=== PATIENT | male | born 1950 | race African-American/Black ===

== ENCOUNTER 2017-07-31 12:30 | Inpatient (IN) | payer MEDICARE, MEDICAID ==
[~2017-07-31] VITALS: Ht 175.3 cm; Wt 62.6 kg
--- NOTE | 2017-07-31 12:30 | NUR ---
Home med list from the Adult day care was given by the social media content specialist.
[2017-07-31 13:11] LABS: BASOPHILS # (AUTO) 0.1 K/uL (0.0-8.0); BASOPHILS % (AUTO) 1.3 % (0.0-2.0); EOSINOPHILS # (AUTO) 0.3 K/uL (0.0-0.7); EOSINOPHILS % (AUTO) 5.8 % (0.0-7.0); HEMATOCRIT 38.3 % (36.7-47.1); HEMOGLOBIN 12.4 g/dL (12.5-16.3); LYMPHOCYTES # (AUTO) 0.7 K/uL (20.0-40.0); LYMPHOCYTES % (AUTO) 13.8 % (20.5-51.5); MEAN CORPUSCULAR HEMOGLOBIN 26.3 uug (23.8-33.4); MEAN CORPUSCULAR HGB CONC 32 g/dL (32.5-36.3); MEAN CORPUSCULAR VOLUME 81.2 fL (73.0-96.2); MONOCYTES # (AUTO) 0.5 K/uL (2.0-10.0); MONOCYTES % (AUTO) 9.3 % (0.0-11.0); NEUTROPHILS # (AUTO) 3.6 K/uL (1.8-8.9); NEUTROPHILS % (AUTO) 69.8 % (38.5-71.5); PLATELET COUNT (AUTO) 249 K/uL (152-348); RED BLOOD CELL COUNT(AUTO) 4.72 MIL/uL (4.06-5.63); WHITE BLOOD COUNT (AUTO) 5.2 K/uL (3.6-10.2)
[2017-07-31] MEDS ORDERED: PALI234D IM (13:12)
[2017-07-31] MEDS ORDERED: BENZ2TAB7 PO (13:12)
[2017-07-31] MEDS ORDERED: DIVA500T7 PO (13:12)
[2017-07-31] MEDS ORDERED: QUET200T30 PO ×2 (13:15→13:16)
[2017-07-31] MEDS ORDERED: QUET100T31 PO ×2 (13:15)
[2017-07-31 13:20] LABS: CARBON DIOXIDE 28 mmol/L (21-32); CHLORIDE 104 mmol/L (98-107); CREATININE 1.1 mg/dL (0.6-1.3); GLUCOSE 84 mg/dL (74-106); UREA NITROGEN, BLOOD 23 mg/dL (7-18)
[2017-07-31 13:25] LABS: ETHANOL < 3 MG/DL (0-0)
[2017-07-31 13:34] LABS: ALANINE AMINOTRANSFERASE 22 U/L (16-63); ALKALINE PHOSPHATASE 70 U/L (50-136); ASPARTATE AMINOTRANSFERASE 23 U/L (15-37); BILIRUBIN,DIRECT 0.1 mg/dL (0.0-0.2); BILIRUBIN,TOTAL 0.4 mg/dL (0.2-1.0); TOTAL PROTEIN, SERUM 7.5 g/dL (6.4-8.2)
[2017-07-31 13:35] LABS: ACETAMINOPHEN < 2.0 ug/mL (10-30)
[2017-07-31] MEDS ORDERED: OLANZAPINE 10 MG VIAL IM ONE ×2 (14:02→14:40)
[2017-07-31 14:33] LABS: *BILIRUBIN,URIN NEGATIVE (NEGATIVE); *BLOOD, URINE NEGATIVE (NEGATIVE); *CLARITY,URINE CLEAR (CLEAR); *COLOR,URINE YELLOW (YELLOW); *KETONES,URINE NEGATIVE (NEGATIVE); *PROTEIN,URINE TRACE (NEGATIVE); *UROBILINOGEN,URINE 0.2 E.U./dl (NORMAL); LEUKOCYTE ESTERASE ,URINE NEGATIVE (NEGATIVE); NITRITE, URINE NEGATIVE (NEGATIVE); UGLUCOSE NEGATIVE (NEGATIVE)
[2017-07-31 14:46] LABS: RBC,URINE 0-3 /HPF (0-3); SQUAMOUS EPITHELIAL CELL,UR FEW /HPF (NONE SEEN)
[2017-07-31 14:47] LABS: *AMPHETAMINE, URINE NEGATIVE (NEGATIVE); *BARBITURATE, URINE NEGATIVE (NEGATIVE); *CANNABINOID, URINE NEGATIVE (NEGATIVE); *COCCAINE, URINE POSITIVE (NEGATIVE); *OPIATE, URINE NEGATIVE (NEGATIVE); *PHENCYCLIDINE SCREEN,URINE NEGATIVE (NEGATIVE); MUCUS,URINE FEW /LPF (0-FEW)
--- NOTE | 2017-07-31 15:33 | NUR ---
SBAR report given to Jovana RN via telephone.
[2017-07-31] MEDS ORDERED: ACETAMINOPHEN 325 MG TABLET PO PRN (17:30)
[2017-07-31] MEDS ORDERED: MAG HYDROX/AL HYDROX/SIMETH 30 ML LIQUID UDC PO PRN (17:30)
[2017-07-31] MEDS ORDERED: MAGNESIUM HYDROXIDE 30 ML LIQUID UDC PO PRN (17:30)
[2017-07-31] MEDS ORDERED: ZOLPIDEM 5 MG TABLET PO PRN (17:30)
[2017-07-31] MEDS ORDERED: LORAZEPAM 0.5 MG TABLET PO PRN (17:30)
--- NOTE | 2017-07-31 18:52 | NUR ---
Admit to MHU a 67 yr. old male, placed on 5150 for DTO. Patient was verbally threatening staff and peers at the [facility].. as reported by [facility] staff, patient has been increasingly agitated x 4 weeks now, cursing, threaten staff to kill them. Per staff at [facility] , patient yelling , swearing and talking to himself. Upon arrival to the MHU , patient was uncooperative,agitated and angry refused to answer questions and refused to to sign admission papers. Dr. Bernal,psychiatrist notified by charge nurse about the admission.
--- NOTE | 2017-07-31 22:00 | NUR ---
received to care, lying in bed, with the covers, over his face. 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 as of 2199, he appears to be asleep. no distress noted. will continue to monitor closely.
[2017-08-01 07:30] VITALS: BP 138/84
[2017-08-01] MEDS: QUETIAPINE FUMARATE 25 MG TABLET PO SCH ×2 (10:32→16:21)
[2017-08-01] MEDS: DIVALPROEX SPRINKLE 125 MG CAP.SPRINK PO SCH ×5 (10:33→17:00)
[2017-08-01 15:00] VITALS: BP 118/81
--- NOTE | 2017-08-01 17:53 | NUR ---
Patient cheeking medications, found 4 capsule of depakote on the floor. Please observed patient.
--- NOTE | 2017-08-01 18:43 | NUR ---
[address] Bridges through Epic slag motor operator, need to reach MD for order-spoke to Mark, slag motor operator -left message. 1735 Dr. Mccarty returned call informed about patient elevated TSH level 5.545, ordered Levothyroxine 50mcg po daily- order carried out.
[2017-08-01 19:59] VITALS: BP 119/60
[2017-08-01] MEDS: QUETIAPINE FUMARATE 100 MG TABLET PO SCH (20:12)
[2017-08-02 07:30] VITALS: BP 115/77
--- NOTE | 2017-08-02 08:39 | NUR ---
Initial DC Plan: Patient currently resides at [facility] [[address] [place] [address]; [phone]]. Patient has no primary contacts. SW will follow up with MD, patient, and patient's facility to discuss most appropriate discharge plans. SW will form a safe and proper discharge.
--- NOTE | 2017-08-02 08:55 | NUR ---
Firearms Reporting: LUCAS submitted Mental Health Report to [facility] on 08/02.
[2017-08-02] MEDS: QUETIAPINE FUMARATE 25 MG TABLET PO SCH ×2 (09:20→16:38)
[2017-08-02] MEDS: VALPROIC ACID 250 MG/5 ML LIQUID UDC PO SCH ×3 (09:20→16:39)
[2017-08-02 15:00] VITALS: BP 105/72
[2017-08-02 20:06] VITALS: BP 114/75
[2017-08-02] MEDS: QUETIAPINE FUMARATE 100 MG TABLET PO SCH (20:32)
--- NOTE | 2017-08-03 05:53 | NUR ---
GPS/NSG PATIENT VISIBLE ON THE UNIT THIS MORNING WITH INCREASED AGITATION. HOSTILE ON APPROACH, DIRECTED TO THE SHOWER, AT FIRST SEEMED LIKE THERE WAS COMPLIANCE HOWEVER UPON FURTHER ASSISTANCE PATIENT BECAME MORE AGGRESSIVE. PATIENT ALLOWED STAFF REMOVE HEPLOCK LOCATED ON LEFT FOREARM DURING THIS TIME PATIENT MUMBLED ABUSIVE, THREATENING STATEMENTS. PATIENT REMAINED IN SHOWER APPROX. TEN MINUTES CAME OUT OF THE SHOWER ROOM DID NOT APPEAR SHOWERED. WILL CONTINUE TO MONITOR WELL UTILIZE NURSING INTERVENTIONS TO PROVIDE A SAFE ENVIRONMENT FOR PATIENT, PEERS AND STAFF. Addendum: 08/03/17 at 0610 by MUSHTAQ GONZALEZ RN OTHERWISE PATIENT SLEPT APPROX NINE HOURS NO APPARENT SIGNS OF DISTRESS. LAST OBSERVED IN ROOM AWAKE.
[2017-08-03 07:30] VITALS: BP 114/80
[2017-08-03] MEDS: QUETIAPINE FUMARATE 25 MG TABLET PO SCH ×2 (08:10→16:00)
[2017-08-03] MEDS: VALPROIC ACID 250 MG/5 ML LIQUID UDC PO SCH ×3 (08:10→16:00)
[2017-08-03 15:02] VITALS: BP 94/65
[2017-08-03] MEDS: QUETIAPINE FUMARATE 100 MG TABLET PO SCH (20:19)
[2017-08-03 20:30] VITALS: BP 126/86
[2017-08-04 07:30] VITALS: BP 122/83
[2017-08-04] MEDS: QUETIAPINE FUMARATE 25 MG TABLET PO SCH ×2 (08:07→16:07)
[2017-08-04] MEDS: VALPROIC ACID 250 MG/5 ML LIQUID UDC PO SCH ×3 (08:07→16:07)
[2017-08-04 16:00] VITALS: BP 120/72
[2017-08-04 19:54] VITALS: BP 131/89
[2017-08-04] MEDS: QUETIAPINE FUMARATE 100 MG TABLET PO SCH (20:51)
[2017-08-05 07:30] VITALS: BP 120/83
[2017-08-05] MEDS: QUETIAPINE FUMARATE 25 MG TABLET PO SCH ×3 (08:03→16:02)
[2017-08-05] MEDS: VALPROIC ACID 250 MG/5 ML LIQUID UDC PO SCH ×3 (08:03→16:01)
[2017-08-05 15:15] VITALS: BP 97/72
[2017-08-05] MEDS: LORAZEPAM 0.5 MG TABLET PO PRN (16:02)
[2017-08-05] MEDS: NICOTINE 21 MG/24HR PATCH TD SCH (16:04)
--- NOTE | 2017-08-05 17:35 | NUR ---
PATIENT STAY IN HIM ROOM MOST OF TIME,BECOME AGITATED AT TIME ATIVAN 0.5 MG GIVEN ORDERED .REFUSED TO ATTEND AND PARTICIPATED IN GROUP ACTIVITY DENIES ANY PAIN OR DISCOMFORT ,WILL CLOSE MONITORING.
[2017-08-05] MEDS: QUETIAPINE FUMARATE 100 MG TABLET PO SCH (20:55)
--- NOTE | 2017-08-05 22:00 | NUR ---
received to care, lying in bed, asleep, but awake, and pleasant, and guarded, when approached. refused vital signs to be checked, but did take his bedtime medications, and ate a snack. as of 2200, he appears to be asleep. no distress noted. will continue to monitor closely.
[2017-08-06 07:30] VITALS: BP 118/82
[2017-08-06] MEDS: QUETIAPINE FUMARATE 25 MG TABLET PO SCH ×3 (09:03→18:25)
[2017-08-06] MEDS: NICOTINE 21 MG/24HR PATCH TD SCH (09:03)
[2017-08-06] MEDS: LORAZEPAM 0.5 MG TABLET PO PRN (09:03)
[2017-08-06] MEDS: VALPROIC ACID 250 MG/5 ML LIQUID UDC PO SCH ×2 (09:05→18:24)
[2017-08-06 15:30] VITALS: BP 115/78
--- NOTE | 2017-08-06 18:57 | NUR ---
PATIENT IN ROOM MOST OF SHIFT WITH SHEET OVER HEAD R I S NO OUT BURSTS ISOLATIVE AND GUARDED
[2017-08-06 19:54] VITALS: BP 116/83
[2017-08-06] MEDS: QUETIAPINE FUMARATE 100 MG TABLET PO SCH (21:23)
--- NOTE | 2017-08-06 22:00 | NUR ---
received to care, lying in bed, pleasant, upon approach. compliant with medications, staff direction, and ate a snack. as of 2200, he appears to be asleep. no distress or agitation noted, but was observed to be talking to self, and laughing inappropriately. will continue to monitor closely.
[2017-08-07 07:30] VITALS: BP 134/89
[2017-08-07] MEDS: NICOTINE 21 MG/24HR PATCH TD SCH (08:22)
[2017-08-07] MEDS: LORAZEPAM 0.5 MG TABLET PO PRN ×2 (08:22→13:25)
[2017-08-07] MEDS: QUETIAPINE FUMARATE 25 MG TABLET PO SCH ×3 (08:22→17:05)
[2017-08-07] MEDS: VALPROIC ACID 250 MG/5 ML LIQUID UDC PO SCH ×2 (08:22→17:05)
--- NOTE | 2017-08-07 13:46 | NUR ---
at 1300 patient c/o chest pain unable to give a number on scale, called to DR MIRELES FOR ORDERS EKG ORDERED AND SHOWED NSR. INFORMED MR. mireles and he stat troponin level done now . PATIENT HAS HISTORY OF COCAINE ABUSE AND OTHER DRUG ABUSE. WILL CONTINUE TO MONITOR PTS LEVELS OF CHEST PAIN.
[2017-08-07] MEDS ORDERED: LORAZEPAM 2 MG/1 ML VIAL IM ONE (14:15)
[2017-08-07] MEDS ORDERED: BENZTROPINE MESYLATE 2 MG/2 ML AMPUL IM SCH (14:15)
[2017-08-07] MEDS ORDERED: HALOPERIDOL DECANOATE 50 MG/1 ML AMPUL IM ONE (14:15)
[2017-08-07 16:01] VITALS: BP 118/76
--- NOTE | 2017-08-07 19:30 | NUR ---
received to care, lying in bed, with covers over his head. continues to deny chest pain, or any other sx. will continue to monitor closely.
[2017-08-07 20:08] VITALS: BP 108/86
[2017-08-07] MEDS: QUETIAPINE FUMARATE 100 MG TABLET PO SCH (20:59)
--- NOTE | 2017-08-07 22:00 | NUR ---
received to care, lying in bed, asleep, but awake, and pleasant, and guarded, when approached. compliant with medications, and staff direction. continues to deny chest pain, or other sx. as of 2199, he appears to be asleep. no distress noted. will continue to monitor closely.
[2017-08-08 07:30] VITALS: BP 121/85
[2017-08-08] MEDS: VALPROIC ACID 250 MG/5 ML LIQUID UDC PO SCH ×2 (08:29→16:44)
[2017-08-08] MEDS: QUETIAPINE FUMARATE 25 MG TABLET PO SCH ×3 (08:29→16:44)
[2017-08-08] MEDS: NICOTINE 21 MG/24HR PATCH TD SCH (08:30)
--- NOTE | 2017-08-08 14:47 | NUR ---
Gps/Leader Writer- Patient remains in his room in bed, encouraged attending his group therapy, claimed he does not like group therapy . Has poor initiation . Compliant with his routine medications, needed prompting.
[2017-08-08 15:00] VITALS: BP 113/69
[2017-08-08 19:57] VITALS: BP 102/66
[2017-08-08] MEDS: QUETIAPINE FUMARATE 100 MG TABLET PO SCH (21:36)
--- NOTE | 2017-08-08 22:00 | NUR ---
received to care, lying in bed, pleasant, upon approach. compliant with medications, staff direction. as of 0, he appears to be asleep. no distress or agitation noted. will continue to monitor closely.
--- NOTE | 2017-08-09 06:00 | NUR ---
slept 6.5 hours, total. continues to sleep. no distress noted.
[2017-08-09 07:26] LABS: BASOPHILS % (AUTO) 0.9 % (0.0-2.0); EOSINOPHILS # (AUTO) 0.2 K/uL (0.0-0.7); EOSINOPHILS % (AUTO) 5.3 % (0.0-7.0); HEMATOCRIT 40.3 % (36.7-47.1); LYMPHOCYTES # (AUTO) 0.9 K/uL (20.0-40.0); LYMPHOCYTES % (AUTO) 22.5 % (20.5-51.5); MEAN CORPUSCULAR HEMOGLOBIN 26.2 uug (23.8-33.4); MEAN CORPUSCULAR HGB CONC 32 g/dL (32.5-36.3); MEAN CORPUSCULAR VOLUME 81.5 fL (73.0-96.2); MONOCYTES # (AUTO) 0.4 K/uL (2.0-10.0); MONOCYTES % (AUTO) 8.7 % (0.0-11.0); NEUTROPHILS # (AUTO) 2.6 K/uL (1.8-8.9); NEUTROPHILS % (AUTO) 62.6 % (38.5-71.5); PLATELET COUNT (AUTO) 245 K/uL (152-348); RED BLOOD CELL COUNT(AUTO) 4.95 MIL/uL (4.06-5.63); WHITE BLOOD COUNT (AUTO) 4.1 K/uL (3.6-10.2)
[2017-08-09 07:30] VITALS: BP 125/98
[2017-08-09 08:05] LABS: THYROID STIMULATING HORMONE 0.912 mIU/mL (0.358-3.740)
[2017-08-09] MEDS: VALPROIC ACID 250 MG/5 ML LIQUID UDC PO SCH (08:06)
[2017-08-09] MEDS: NICOTINE 21 MG/24HR PATCH TD SCH (08:06)
[2017-08-09] MEDS: QUETIAPINE FUMARATE 25 MG TABLET PO SCH ×2 (08:06→12:25)
[2017-08-09 08:21] LABS: BILIRUBIN,TOTAL 0.1 mg/dL (0.2-1.0); CREATININE 1.1 mg/dL (0.6-1.3); MAGNESIUM 1.8 mg/dL (1.8-2.4); PHOSPHOROUS 3.4 mg/dL (2.5-4.9); POTASSIUM 4.4 mmol/L (3.5-5.1); TOTAL PROTEIN, SERUM 7.5 g/dL (6.4-8.2)
--- NOTE | 2017-08-09 10:15 | NUR ---
DC Note: Patient will be discharged to [facility] [[address] [place] [address]; [phone]] via private transportation. Transportation will be provided by [employer] [facility]. LUCAS spoke with Frank from [employer] [[phone]] who stated they will moss picker patient between 3:30 and 4:30pm. LUCAS spoke with Trinity at [facility] to confirm discharge plans. Patient is aware and agreeable to discharge plans. He has no primary contacts to notify of discharge plans. Patient will follow up with Dr. Breanna Otto [Mortgage Protection Specialist] and Dr. Storm Whitmore [Psychiatrist]. Patient was provided a brief substance abuse intervention for cocaine use and provided outpatient referrals including: [facility] [[phone]], [facility] [[phone]], and [facility] [[phone]]. Patient was provided smoking cessation referrals for [employer] 800[facility] and [employer] [phone].
--- NOTE | 2017-08-09 14:07 | NUR ---
Gps/Sanitarian Aide- Discharge planning in progress, patient to be discharge to [facility] via [employer] [facility].Reviewed medications/prescriptions and discharge instructions, ,patient refused to signs paper works, but verbalized understanding of the dc.instructions. Emphasized follow up with his Primary Medicial Doctor Dr Breanna Otto and Dr Storm Sandoval Psychiatrist. Patient was provided w/ informations on substance abuse intervention /out patient referral per SW.
[2017-08-09 15:00] VITALS: BP 108/79
--- NOTE | 2017-08-09 15:23 | NUR ---
Gps/Induction Machine Setter- All belongings given back to patient , no complaints noted, discharged to [facility] via [employer] [facility], no complaints noted, patient in good spirit.
== END 2017-08-09 15:28 | DRG 885 ==
LOC: ER 12:30 → GPS 15:45
PROVIDERS: ADMIT Psychiatry & Neurology Psychiatry; ATTEND Internal Medicine
PROC: 0HBRXZZ Excision of Toe Nail, External Approach (ICD-10-PCS; principal; 2017-08-05)
DX: F25.0 Schizoaffective disorder, bipolar type (principal); Z91.14 Patient's other noncompliance with medication regimen; B35.1 Tinea unguium; F14.159 Cocaine abuse with cocaine-induced psychotic disorder, unspecified; F41.9 Anxiety disorder, unspecified; M20.21 Hallux rigidus, right foot; Z91.19 Patient's noncompliance with other medical treatment and regimen; Z79.899 Other long term (current) drug therapy; M20.22 Hallux rigidus, left foot; L60.3 Nail dystrophy
CPT/HCPCS: 36415; 70030-TC; 71045; 80164; 80307; 83735; 84100; 84443; 85025; 93005; A4663; G0480; G0480-TC; J2358